=== PATIENT | female | born 1955 | race African-American/Black ===

== ENCOUNTER 2018-06-28 13:58 | Observation (INO) ==
[2018-06-28] MEDS ORDERED: predniSONE 20 MG TABLET PO ONE (14:25)
--- NOTE | 2018-06-28 14:28 | Emergency Department Note ---
Disposition Clinical Impression: Cerebrovascular accident Qualifiers: CVA mechanism: unspecified Qualified Code(s): I63.9 - Cerebral infarction, unspecified Disposition: Admitted As Inpatient Condition: Good Forms: ED Satisfaction Letter Time of Disposition: 15:39 General Adult HPI - General Chief complaint: ED Neuro Symptoms/Deficit Stated complaint: Neuro symptoms last known well Tuesday Time Seen by Provider: 06/28/18 14:17 Source: patient Mode of arrival: ambulatory Limitations: no limitations - History of Present Illness HPI Narrative: This is a 63-year-old female who comes to emergency department at the urging of her family. She states that she developed slurred speech about 40-44 hours prior to arrival. She thought she was just tired and hoped it would get better. She states her one family member thinks she may have had a stroke. Pain Scale: 0 - Related Data Home Medications Medication Instructions Recorded Confirmed Amlodipine Besylate 10 mg PO DAILY 09/30/16 09/30/16 Chlorthalidone 25 mg PO DAILY 09/30/16 09/30/16 Insulin Glargine [Lantus] 0 unit SQ HS 09/30/16 09/30/16 Lisinopril [Zestril] 10 mg PO DAILY 09/30/16 09/30/16 Metoprolol [Lopressor] 25 mg PO BID 09/30/16 09/30/16 Pravastatin Sodium 10 mg PO DAILY 09/30/16 09/30/16 metFORMIN [Glucophage] 500 mg PO 0800 09/30/16 09/30/16 Previous Rx's Medication Instructions Recorded Clindamycin [Cleocin] 150 mg PO Q6HR #7 capsule 09/30/16 OxyCODONE Immed Rel [Roxicodone 5 5 - 10 mg PO Q6HR PRN #30 tablet 09/30/16 MG] Allergies Allergy/AdvReac Type Severity Reaction Status Date / Time codeine Allergy Rash Verified 09/30/16 10:08 All systems ED: reviewed and negative except as stated. Neurological: Reports: other (Dysarthria,) Past Medical History - Past Medical History Medical history: Reports: arthritis, diabetes, hyperlipidemia, hypertension Psychiatric history: Reports: no psych history - Social History Smoking Status: Current every day smoker Smokeless Tobacco Status: No Alcohol use: Reports: none Drug use: Reports: none Physical Exam - General Limitations: no limitations General appearance: alert, in no apparent distress - Head Head exam: atraumatic - Eye Eye exam: Present: normal appearance, PERRL, EOMI. Absent: scleral icterus, conjunctival injection, miosis, mydriasis - Chest Chest inspection: Present: normal inspection, symmetric chest wall rise - Respiratory Respiratory exam: Present: normal lung sounds bilaterally - Cardiovascular Cardiovascular exam: Present: regular rate, normal rhythm, normal heart sounds - Abdominal Exam Abdominal exam: Present: soft, Non-Tender. Absent: tenderness, distention, guarding, rebound, rigidity - Extremities Exam Extremities exam: Present: normal inspection, full ROM. Absent: tenderness, pedal edema - Neurological Exam Neurological exam: Present: alert, oriented X3, other (There is slight weakness of the left forehead as well as the left lower face, and the left lower face is clearly weak compared to the right) - Expanded Neurological Exam Patient oriented to: Present: person, place, time Speech: Present: fluid speech Cranial nerves: EOM function (II, III, IV, ): Normal, facial sensation (V): Normal, facial palsy (VII): Abnormal Left, gag reflex (IX): Normal, spinal accessory function (XI): Normal, tongue deviation (XII): Normal Cerebellar function: finger to nose: Normal, heel to prado: Normal Cerebellar function: normal gait Motor strength - LUE: 5/5 Motor strength - RUE: 5/5 Motor strength - LLE: 5/5 Motor strength - RLE: 5/5 Course Course Narrative: This is a 63-year-old female who is either suffered a stroke affecting her left face or Wilkerson's palsy. Vital Signs Temperature 98.4 F 06/28/18 14:07 Pulse Rate 102 06/28/18 14:07 Respiratory Rate 16 06/28/18 14:07 Blood Pressure 201/128 06/28/18 14:07 O2 Sat by Pulse Oximetry 98 06/28/18 14:07 Temperature 98.4 F 06/28/18 14:07 Pulse Rate 102 06/28/18 14:07 Respiratory Rate 16 06/28/18 14:07 Blood Pressure 201/128 06/28/18 14:07 O2 Sat by Pulse Oximetry 98 06/28/18 14:07 Oxygen Delivery Oxygen Delivery Room Air Medical Decision Making - MDM Narrative Medical decision making narrative: This is a 63-year-old female who has sustained either a new stroke or Wilkerson's palsy. Her exam is potentially indicative of either one. Because she has already had previous strokes that apparently she did not know about, she was willing to stay for a further evaluation. I discussed her case with the on-call hospitalist, who accepted her for admission - Lab Data Lab results reviewed: Yes I reviewed the patient's lab results. Lab results narrative: CBC was unremarkable BMP was unremarkable Troponin was low Result diagrams: 06/28/18 14:30 06/28/18 14:30 Lab Results 06/28/18 06/28/18 Range/Units 14:30 14:30 WBC 10.6 (4.3-11.1) K/mcL RBC 4.78 (3.82-4.97) M/mcL Hgb 14.2 (11.5-15.4) g/dL Hct 43.3 (35.3-44.9) % MCV 90.6 (83.0-100.0) fL MCH 29.7 (28.0-33.3) pg MCHC 32.8 (31.6-35.5) g/dL RDW 12.8 (11.5-14.5) % Plt Count 242 (140-400) K/mcL MPV 10.5 (9.4-12.4) fL Sodium 138 (136-145) mEq/L Potassium 3.8 (3.5-5.1) mEq/L Chloride 103 (98-107) mEq/L Carbon Dioxide 28 (23-29) mEq/L BUN 13 (8-23) mg/dL Creatinine 0.90 (0.60-1.20) mg/dL Est GFR ( Amer) > 60 (> 60) Est GFR (Non-Af Amer) > 60 (> 60) BUN/Creatinine Ratio 14 (6-26) Glucose 74 (70-105) mg/dL Calculated Osmolality 285 (280-300) Calcium 10.6 H (8.6-10.3) mg/dL Troponin I < 0.03 (< 0.04) ng/mL - Radiology Data Radiology results reviewed: Yes I reviewed the patient's radiology results. CT brain was showing no acute findings but evidence of old strokes Critical Care Time Critical Care Time: No
[2018-06-28 14:56] LABS: Hematocrit 43.3 % (35.3-44.9); Hemoglobin 14.2 g/dL (11.5-15.4); Mean Corpuscular HGB Conc 32.8 g/dL (31.6-35.5); Mean Corpuscular Hemoglobin 29.7 pg (28.0-33.3); Mean Corpuscular Volume 90.6 fL (83.0-100.0); Mean Platelet Volume 10.5 fL (9.4-12.4); Platelet Count 242 K/mcL (140-400); Red Blood Count 4.78 M/mcL (3.82-4.97); Red Cell Distribution Width 12.8 % (11.5-14.5)
[2018-06-28 15:16] LABS: BUN/Creatinine Ratio 14 (6-26); Blood Urea Nitrogen 13 mg/dL (8-23); Calcium 10.6 mg/dL (8.6-10.3); Carbon Dioxide 28 mEq/L (23-29); Chloride 103 mEq/L (98-107); Glucose 74 mg/dL (70-105); Osmolality,Calculated 285 (280-300); Potassium 3.8 mEq/L (3.5-5.1); Sodium 138 mEq/L (136-145); Troponin I < 0.03 ng/mL (< 0.04); eGFR For Non-African Americans > 60 (> 60)
[2018-06-28] MEDS ORDERED: Aspirin 325 MG TABLET PO ONE (15:40)
[2018-06-28] MEDS ORDERED: Naloxone 0.4 MG/ML INJ IVP PRN (15:50)
[2018-06-28] MEDS ORDERED: *HR* Dextrose 50 % in Water (Syg) 50 ML SYRINGE IVP PRN (15:51)
[2018-06-28] MEDS ORDERED: D5% in Water 1,000 ML IVC PRN (15:51)
[2018-06-28] MEDS ORDERED: Dextrose Gel 15 GM/37.5 ML TUBE PO PRN ×2 (15:51)
[2018-06-28] MEDS ORDERED: *HR* Metoprolol 5 MG/5 ML VIAL IVP PRN (15:53)
--- NOTE | 2018-06-28 16:41 | Internal Med History&Physical ---
Date of Encounter: 06/28/18 Time of Encounter: 16:41 Internal Medicine - H&P: HPI Chief complaint: I might have had a stroke Admitted From: Home Plans for Post Hospital Care: Home History of present illness: Ms. Ovalle is a 63 year old female with PMH of DM, HTN, Tobacco abuse who presented to the ER stating her family member thought she might have had a stroke She reports being in her usual state of health till >48 hrs ago (Tuesday 06/26) when her family member told her she was speaking funny. She states she thought she had a slurred speech but thought it was because she was tired and that he would rarely by itself. However, she also noted a right facial droop was urged to presented to the ER by family members. She smokes half a pack of cigarettes daily, she reports compliance with her home medications. She denies prior family history. She denies illicit drug use. She denies sensation deficits, she denies loss of consciousness, she has a normal gait and has no focal weakness of any of her extremities. She denies n/v/d, She denies visual complains, she denies shortness of breath, cough , or chest pain, she has no palpitations or dizziness She has no genitourinary symptoms PMH is as stated above, she takes insulin for her DM and also takes 'a pill for cholesterol" Work up in ER showed unremarkable CBC and Chem Head CT showed evidence for old infarcts in R caudate nucleus and R basal ganglia MRI is pending EKG was not done in ER Patient will be placed on observation for CVA work up She has no advance directives and is full code Past Med Surg Social Fam HX - Past Medical History Medical history: arthritis, diabetes, hyperlipidemia, hypertension Additional medical history: tobacco dependency. left rotator cuff tear Psychiatric history: no psych history - Past Surgical History Additional surgical history: bilateral carpal tunnel. hystrectomy - Social History Smoking Status: Current every day smoker Smokeless Tobacco Status: No Alcohol use: none Drug use: none Internal Medicine - H&P: Meds Amlodipine Besylate 10 mg PO DAILY 09/30/16 [History] Chlorthalidone 25 mg PO DAILY 09/30/16 [History] Clindamycin [Cleocin] 150 mg PO Q6HR #7 capsule 09/30/16 [Rx] Insulin Glargine [Lantus] 0 unit SQ HS 09/30/16 [History] Lisinopril [Zestril] 10 mg PO DAILY 09/30/16 [History] Metoprolol [Lopressor] 25 mg PO BID 09/30/16 [History] OxyCODONE Immed Rel [Roxicodone 5 MG] 5 - 10 mg PO Q6HR PRN #30 tablet 09/30/16 [Rx] Pravastatin Sodium 10 mg PO DAILY 09/30/16 [History] metFORMIN [Glucophage] 500 mg PO 0800 09/30/16 [History] Allergy/AdvReac Type Severity Reaction Status Date / Time codeine Allergy Rash Verified 09/30/16 10:08 All Systems PM: A 10-system review of systems was performed and is negative for pertinent findings except as documented above in the HPI. - Constitutional Constitutional: as per HPI - EENT Eyes: as per HPI Ears: as per HPI Nose, mouth and throat: as per HPI - Cardiovascular Cardiovascular ROS IM: as per HPI - Respiratory Respiratory: as per HPI - Gastrointestinal Gastrointestinal: as per HPI - Genitourinary Genitourinary: as per HPI - Musculoskeletal Musculoskeletal ROS IM: as per HPI - Integumentary Integumentary IM: as per HPI - Neurological Neurological ROS: as per HPI - Hematologic/Lymphatic Hematologic/Lymphatic: as per HPI - Constitutional Vitals: Temp Pulse Resp BP Pulse Ox 98.4 F 90 16 160/99 97 06/28/18 14:07 06/28/18 16:15 06/28/18 16:15 06/28/18 16:15 06/28/18 16:15 Exam: VSS Blood pressure slightly uncontrolled Gen: Not in any form of distress, speaks full sentences HEENT: Moist oral mucosa, not pale, anicteric Chest: Equal chest move bilaterally Resp: CTAB, no added sounds Heart: S1, S2 only, RRR, no m/g/r Abdomen: Soft, not tender, no palpably enlarged organs Extremities: No edema, pulses at least 2+ bilaterally Neuro: Awake, alert, oriented, dysarthria+, flattening of the right nasolabial fold with right facial droop, intact forehead wrinkling, tongue deviation to the right, no sensation deficits, power in all limbs at least 5/5, no visual field deficits Psych; Appropriate affect Internal Med - H&P Results - Labs CBC & Chem 7: 06/28/18 14:30 06/28/18 14:30 Labs: Short CBC 06/28/18 Range/Units 14:30 WBC 10.6 (4.3-11.1) K/mcL Hgb 14.2 (11.5-15.4) g/dL Hct 43.3 (35.3-44.9) % Plt Count 242 (140-400) K/mcL BMP 06/28/18 14:30 Sodium 138 Potassium 3.8 Chloride 103 Carbon Dioxide 28 BUN 13 Creatinine 0.90 Glucose 74 Calcium 10.6 H Cardiac Enzymes 06/28/18 Range/Units 14:30 Troponin I < 0.03 (< 0.04) ng/mL - Impressions ITS Impressions Head CT 06/28/18 14:25 IMPRESSION: No acute intracranial abnormality. Evidence for old infarcts in the right caudate nucleus and right basal ganglia region D/ / Shayan Regan MD / Shayan Regan MD Interpreting Provider: Shayan Regan MD - Assessment and plan (1) Cerebrovascular accident Current Visit: Yes Status: Acute Assessment and plan: Patient with clinical findings of neurologic deficits including left facial paralysis, slurred speech , tongue deviation Brain MRI shows Right posterior frontal acute infarct with minimal global parenchymal volume loss with moderate chronic microvascular ischemic changes Received ASA in ER Continue ASA 81 mg daily Lipitor 40mg HS Obtain STAT EKG Keep on tele Obtain ECHO and Doppler USS of carotids Neurology consult Speech therapy consult Bedside swallow to be done by RN and patient can be fed if passed Blood pressure uncontrolled, allow permissive HTN for now DVT prophylaxis with lovenox Qualifiers: CVA mechanism: unspecified Qualified Code(s): I63.9 - Cerebral infarction, unspecified (2) HTN (hypertension) Current Visit: Yes Status: Chronic Assessment and plan: Resume home meds-tomorrow, after 48 hr window Metoprolol IVP prn to keep SBP <180 Continue to monitor Qualifiers: Hypertension type: essential hypertension Qualified Code(s): I10 - Essential (primary) hypertension (3) HLD (hyperlipidemia) Current Visit: Yes Status: Chronic Assessment and plan: lipitor 40mg HS Lipid panel a.m Qualifiers: Hyperlipidemia type: unspecified Qualified Code(s): E78.5 - Hyperlipidemia, unspecified (4) Diabetes mellitus Current Visit: Yes Status: Chronic Assessment and plan: Sliding scale insulin for now FS ACHS Check A1C a.m Qualifiers: Diabetes mellitus type: type 2 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
[2018-06-28] MEDS ORDERED: Perflutren Lipid Microsphere 1.3 ML in 0.9 % Sodium Chloride 8.7 ML IVP ONE (17:37)
[2018-06-28] MEDS: Insulin LISPRO 300 UNITS/3 ML VIAL SQ SCH (18:29)
[2018-06-28] MEDS ORDERED: Insulin LISPRO 300 UNITS/3 ML VIAL SQ SCH (21:00)
[2018-06-29] MEDS ORDERED: *HR* Enoxaparin 40 MG/0.4 ML SYRINGE SQ SCH (06:00)
[2018-06-29 07:02] LABS: Chol/HDL Ratio 3.3 (0-4.9)
[2018-06-29 07:03] LABS: Estimated Average Glucose 237 mg/dl; Hemoglobin A1C 9.9 %
[2018-06-29] MEDS: Insulin LISPRO 300 UNITS/3 ML VIAL SQ SCH ×2 (08:44→12:05)
--- NOTE | 2018-06-29 08:54 | Neurology - Consult Note ---
<Ajit David - Last Filed: 06/29/18 13:43> Date of Encounter: 06/29/18 Time of Encounter: 08:52 Assessment and Plan (1) Cerebrovascular accident Status: Acute - Patient presented to the emergency department with slurred speech, L facial droop, tongue deviation - Initial head CT: No acute abnormalities; old infarcts in caudate nucleus and R basal ganglia - Brain MRI: Right posterior frontal acute infarct with minimal global parenchymal volume loss with moderate chronic microvascular ischemic changes - Carotid duplex demonstrated minimal plaque in the carotid arteries bilaterally - Patient was started on both aspirin and a statin - Speech therapy was consulted Plan: - Allow permissive hypertension for 48 hour window - Continue aspirin and statin Qualifiers: CVA mechanism: unspecified Qualified Code(s): I63.9 - Cerebral infarction, unspecified (2) HTN (hypertension) Status: Chronic - Allow for permissive hypertension - Resume blood pressure medications for 48 hour window Qualifiers: Hypertension type: essential hypertension Qualified Code(s): I10 - Essential (primary) hypertension (3) HLD (hyperlipidemia) Status: Chronic - Continue statin Qualifiers: Hyperlipidemia type: unspecified Qualified Code(s): E78.5 - Hyperlipidemia, unspecified (4) Diabetes mellitus Status: Chronic - Management per primary team Qualifiers: Diabetes mellitus type: type 2 Diabetes mellitus 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 On Tuesday, 06/26, a family member had told her that she was speaking funny. Also noticed a right-sided facial droop, was urged to present to the ER by family members. She denied having any sensation deficits or loss of consciousness. No focal weaknesses or gait disturbances. Vitals on arrival were significant for an elevated heart rate at 102 bpm and elevated blood pressure of 201/128. Laboratory analysis was unremarkable. CT scan of the head did not demonstrate any acute intracranial abnormalities, but did show evidence of old infarcts in the right caudate nucleus and right basal ganglia. MRI was ordered. Patient was admitted for a stroke workup. Brain MRI demonstrated a small acute infarct in the right posterior frontal white matter, minimal global parenchymal volume loss with moderate chronic microvascular ischemic change. Patient was placed on aspirin and a statin. Carotid duplex ultrasound demonstrated minimal plaque throughout in the carotid arteries bilaterally. Patient was seen and examined at bedside this morning; she states that she is feeling somewhat better than she did on arrival. Patient states that her voice still sounds slurred, and that she still feels weakness in her face. However, she denies having any focal weaknesses, numbness, paresthesias, tingling, visual disturbances, headache, or gait difficulties. She has no further complaints at this time. Past Med Surg Social Fam HX - Past Medical History Medical history: arthritis, diabetes, hyperlipidemia, hypertension Additional medical history: tobacco dependency. left rotator cuff tear Psychiatric history: no psych history - Past Surgical History Additional surgical history: bilateral carpal tunnel. hystrectomy - Social History Smoking Status: Current every day smoker Smokeless Tobacco Status: No Alcohol use: none Drug use: none Medications and Allergies Metoprolol [Lopressor] 25 mg PO BID 09/30/16 [History] Amlodipine Besylate 10 mg PO DAILY 06/28/18 [History] Aspirin [Adult Aspirin Regimen] 81 mg PO DAILY 06/28/18 [History] GlipiZIDE [Glipizide Xl] 5 mg PO DAILY 06/28/18 [History] Insulin Glargine,Hum.rec.anlog [Lantus Solostar] 32 unit SQ DAILY 06/28/18 [History] Liraglutide [Victoza 2-Giovanny] 1.8 mg SQ DAILY 06/28/18 [History] Lisinopril [Zestril] 20 mg PO DAILY 06/28/18 [History] Metformin HCl [Metformin HCl ER] 1,000 mg PO DAILY 06/28/18 [History] Metformin HCl [Metformin HCl ER] 500 mg PO QPM 06/28/18 [History] Atorvastatin [Lipitor] 40 mg PO HS #30 tablet 06/29/18 [Rx] Allergy/AdvReac Type Severity Reaction Status Date / Time codeine Allergy Rash Verified 06/28/18 21:57 All Systems: The remainder of the systems were reviewed and are negative - Constitutional Constitutional ROS IM: as per HPI, no fatigue, no malaise, no weakness - Nose, Mouth, Throat Nose, mouth and throat: as per HPI, no headache(s), no mouth pain, no vertigo - Musculoskeletal Musculoskeletal ROS IM: as per HPI, no muscle weakness, no numbness, no tingling - Neurological Neurological ROS: as per HPI, abnormal speech, no abnormal gait, no confusion, no dizziness, no headache(s), no loss of vision, no numbness, no paresthesias, no sensory deficit, no tingling, no vertigo, no weakness, no other visual disturbances Physical Examination - Vital Signs Vital Signs: Initial Vital Signs Temp Pulse Resp BP Pulse Ox 98.4 F 102 16 201/128 98 06/28/18 14:07 06/28/18 14:07 06/28/18 14:07 06/28/18 14:07 06/28/18 14:07 - Constitutional General appearance: comfortable - Neurologic Sensorimotor examination: intact Motor examination - right side: 5/5: deltoids, biceps, triceps, wrist flexion, wrist extension, insole tacker, toe extension (EHL), plantarflexion Motor examination - left side: 5/5: deltoids, biceps, triceps, wrist flexion, wrist extension, insole tacker, toe extension (EHL), plantarflexion Detailed sensory examination: intact, light touch Reflex and gait examination: intact Reflexes: Triceps: 2+, Patella: 2+ Mental Status Examination: awake, alert, oriented to person, oriented to place, oriented to time, follows commands appropriately, answers questions appropriately, makes eye contact Cranial nerve examination: PERRL, EOMI, visual valenzuela intact Cranial Nerve Exam: facial droop: Right, tongue protrudes: Right Results - Laboratory Findings CBC and BMP: 06/28/18 14:30 06/28/18 14:30 Abnormal lab findings: Abnormal lab results POC Glucose 59 mg/dL (70-99) L 06/28/18 17:14 Hemoglobin A1c 9.9 % (-5.6) H 06/29/18 05:14 Calcium 10.6 mg/dL (8.6-10.3) H 06/28/18 14:30 LDL Cholesterol, Calc 121 mg/dL (0-99) H 06/29/18 05:14 Consult Discharge Plan - Plan Instructions: Atorvastatin (By mouth) Referrals: Brady Ames MD [Non-Partnered Physician] - 07/13/18 9:00 am (Please follow up as schedule...) Prescriptions: Atorvastatin [Lipitor] 40 mg PO HS #30 tablet <Thierry Denny I - Last Filed: 06/29/18 20:24> Date of Encounter: 06/29/18 Assessment and Plan (1) Cerebrovascular accident Status: Acute PT seen and examined agree with Dr David documentation Pt did not have any significant deficit except Mild slurred speech and minimal facial droop, no motor defecit on exam MRI is consistent with acute lacunar infarct so far wrork up is negative if she remain stable OK to Discharge with ASA and STATIN Thierry Denny MD Qualifiers: CVA mechanism: unspecified Qualified Code(s): I63.9 - Cerebral infarction, unspecified History of Present Illness HPI: Ms. Ovalle is a 63 year old female All Systems: The remainder of the systems were reviewed and are negative Physical Examination - Vital Signs Vital Signs: Initial Vital Signs Temp Pulse Resp BP Pulse Ox 98.4 F 102 16 201/128 98 06/28/18 14:07 06/28/18 14:07 06/28/18 14:07 06/28/18 14:07 06/28/18 14:07 Results - Laboratory Findings CBC and BMP: 06/28/18 14:30 06/28/18 14:30 Abnormal lab findings: Abnormal lab results POC Glucose 133 mg/dL (70-99) H 06/29/18 12:05 Hemoglobin A1c 9.9 % (-5.6) H 06/29/18 05:14 Calcium 10.6 mg/dL (8.6-10.3) H 06/28/18 14:30 LDL Cholesterol, Calc 121 mg/dL (0-99) H 06/29/18 05:14
[2018-06-29] MEDS ORDERED: amLODIPine 5 MG TABLET PO SCH (09:00)
[2018-06-29] MEDS ORDERED: Lisinopril 20 MG TABLET PO SCH (09:00)
[2018-06-29] MEDS ORDERED: Aspirin Enteric Coated 81 MG Tablet PO SCH (09:00)
--- NOTE | 2018-06-29 10:06 | Discharge Summary ---
- NOTES TO OUTPATIENT PROVIDER Notes to Outpatient Provider: Patient was admitted for an acute ischemic CVA with neurologic deficits pain left facial paralysis and dysarthria. She has no focal limb weakness and is ambulatory. She was started on aspirin and statin, echocardiogram was unremarkable, carotid ultrasound was unremarkable for plaques. She is hemodynamically stable. She was out of the window for TPA as she presented 48 hours after her symptoms. Neurology was consulted for recommendation, and he recommended continuation of aspirin and statin as well as blood pressure control and control of diabetes, as well as modification of risk factors including tobacco cessation. The patient was discharged home in clinically stable condition to follow-up with primary care physician.Follow up with neurology also within 4 weeks. Date of Encounter: 06/29/18 Time of Encounter: 10:06 - Discharge Diagnosis (1) Cerebrovascular accident Priority: Primary Status: Acute Qualifiers: CVA mechanism: unspecified Qualified Code(s): I63.9 - Cerebral infarction, unspecified (2) HTN (hypertension) Priority: Secondary Status: Chronic Qualifiers: Hypertension type: essential hypertension Qualified Code(s): I10 - [place] tial (primary) hypertension (3) HLD (hyperlipidemia) Priority: Secondary Status: Chronic Qualifiers: Hyperlipidemia type: unspecified Qualified Code(s): E78.5 - Hyperlipidemia, unspecified (4) Diabetes mellitus Priority: Secondary Status: Chronic Qualifiers: Diabetes mellitus type: type 2 Diabetes mellitus oil heaterman insulin use: with oil heaterman use Diabetes mellitus complication status: without complication Qualified Code(s): E11.9 - Type 2 diabetes mellitus without complications; Z79 .4 - senior care (current) use of insulin (5) Tobacco abuse Priority: Secondary Status: Chronic Hospital course: Ms. Ovalle is a 63 year old female with medical history of diabetes mellitus, hypertension, tobacco abuse, was admitted following complains of slurred speech and dysarthria for 48 hours. Workup in the ER revealed suspected infarct and a head CT, however brain MRI confirmed a small acute infarct in the frontoparietal region with no midline shift or mass effect, minimal global parenchymal volume loss. The patient was started on aspirin and statin, speech therapy was consulted, echocardiogram and carotid ultrasound apparently scheduled. Workup has been negative, echocardiogram is unremarkable with no LV thrombus or valvular abnormalities. The patient is ambulatory with no new symptoms. Neurology was consulted for recommendations and agrees with plan. The patient is discharged this morning with aspirin and statin, education of compliance with her medications, diabetic management, and tobacco cessation counseling. 3 minutes spent on tobacco cessation counseling. The patient is discharged home in the clinically stable condition to follow-up with PCP and neurology within the next 4 weeks . She verbalizes understanding of plan of care. Discharge discussed with: patient, nurse, retail consultant Time spent discussing smoking cessation with patient: 3 to 10 minutes (3 mins spent on tobacco cessation counselling) - Time Spent with Patient Total time spent providing and/or coordinating discharge services: Less than 30 minutes - Discharge Medications Prescriptions: Atorvastatin [Lipitor] 40 mg PO HS #30 tablet Home Medications: Metoprolol [Lopressor] 25 mg PO BID 09/30/16 [History] Amlodipine Besylate 10 mg PO DAILY 06/28/18 [History] Aspirin [Adult Aspirin Regimen] 81 mg PO DAILY 06/28/18 [History] GlipiZIDE [Glipizide Xl] 5 mg PO DAILY 06/28/18 [History] Insulin Glargine,Hum.rec.anlog [Lantus Solostar] 32 unit SQ DAILY 06/28/18 [History] Liraglutide [Victoza 2-Giovanny] 1.8 mg SQ DAILY 06/28/18 [History] Lisinopril [Zestril] 20 mg PO DAILY 06/28/18 [History] Metformin HCl [Metformin HCl ER] 1,000 mg PO DAILY 06/28/18 [History] Metformin HCl [Metformin HCl ER] 500 mg PO QPM 06/28/18 [History] Atorvastatin [Lipitor] 40 mg PO HS #30 tablet 06/29/18 [Rx] Allergies/Adverse Reactions: Allergy/AdvReac Type Severity Reaction Status Date / Time codeine Allergy Rash Verified 06/28/18 21:57 Date of admission: 06/28/18 16:11 Primary care physician: PCP NONE Consults: 06/28/18 16:07 Consult to Speech Therapy [CONS] Routine Comment: Evaluate, develop and implement POC Reason for Consult: Slurred speech Call Completed: No 06/28/18 17:13 Consult to Neurology [CONS] Routine Consulting Provider: Neurology [facility] Reason for Consult: CVA Call Completed: No 06/29/18 09:12 Consult to Occupational Therapy [CONS] Routine Comment: Evaluate, develop and implement POC Reason for Consult: eval per CVA protocol Does patient have active BEDREST order?: No Is patient medically & hemodynamically stable?: Yes Consult to Physical Therapy [CONS] Routine Comment: Evaluate, develop and implement POC Reason for Consult: eval per CVA protocol Does patient have active BEDREST order?: No Is patient medically & hemodynamically stable?: Yes Discharging clinician: Ronen Koch Anticipated date of discharge: 06/29/18 - Constitutional Vitals: Temp Pulse Resp BP Pulse Ox 98.5 F 74 16 161/87 100 06/29/18 07:46 06/29/18 07:46 06/29/18 07:46 06/29/18 07:46 06/29/18 07:46 Exam: VSS Blood pressure slightly uncontrolled Gen: Not in any form of distress, speaks full sentences HEENT: Moist oral mucosa, not pale, anicteric Chest: Equal chest move bilaterally Resp: CTAB, no added sounds Heart: S1, S2 only, RRR, no m/g/r Abdomen: Soft, not tender, no palpably enlarged organs Extremities: No edema, pulses at least 2+ bilaterally Neuro: Awake, alert, oriented, dysarthria+, flattening of the right nasolabial fold with right facial droop, intact forehead wrinkling, tongue deviation to the right, no sensation deficits, power in all limbs at least 5/5, no visual field deficits Psych; Appropriate affect - Patient Status Disposition: Home, Self-Care Condition: Fair Functional capacity at discharge: independent ambulation Overall status at discharge: patient is progressing back to baseline - Discharge Instructions Instructions: Atorvastatin (By mouth) Follow Up With: Brady Ames MD [Non-Partnered Physician] - 07/13/18 9:00 am (Please follow up as schedule...) - Diet and Activity Activity: resume usual activities as tolerated Diet: diabetic diet, low fat, low cholesterol, low salt diet
[2018-06-29 11:08] VITALS: BP 162/88
--- NOTE | 2018-06-29 17:40 | Electrocardiograph Report ---
[address] [place], [place] [address] Test Date: 2018-06-28 Pat Name: Tram Ovalle Department: 109 Room: 2A42 Gender: F [employer]ater Installer: [employer] : [id number] Requested By: Ronen Koch Order Number: [id number] Reading MD: Isela Jha Measurements Intervals [place] Rate: 94 P: 43 NV: 150 QRS: 50 QRSD: 81 T: 55 QT: 381 QTc: 433 Interpretive Statements SINUS RHYTHM VOLTAGE CRITERIA FOR LVH Electronically Signed On 06-29-2018 17:38:26 EST by Isela Jha
--- NOTE | 2018-06-30 13:39 | Electrocardiograph Report ---
[place] [id number] Test Date: 2018-06-28 Pat Name: Tram Ovalle Department: 109 Room: 2A42 Gender: F Medicare Contact Specialist: : [id number] Requested By: Ronen Koch Order Number: [id number] Reading MD: Matthew Coronado Measurements Intervals [place] Rate: 84 P: 39 CT: 162 QRS: 33 QRSD: 88 T: 52 QT: 378 QTc: 419 Interpretive Statements SINUS RHYTHM MODERATE VOLTAGE CRITERIA FOR LVH, CONSIDER NORMAL VARIANT NONSPECIFIC T-WAVE ABNORMALITY Electronically Signed On 06-30-2018 13:37:53 EST by Matthew Coronado
== END 2018-06-29 13:10 | disposition home or self-care (01) ==
LOC: SUATTDRO → EMEROOARM 13:58 → 2ANU 13:58
PROVIDERS: ADMIT Internal Medicine; ATTEND Internal Medicine

== ENCOUNTER 2021-02-04 17:39 | Inpatient (IN) ==
[2021-02-04] MEDS ORDERED: *HR* FentaNYL (PF) 100 MCG/2 ML VIAL IVP ONE (18:04)
[2021-02-04] MEDS ORDERED: Ondansetron 4 MG/2 ML VIAL IVP ONE (18:04)
[2021-02-04 18:27] LABS: Hematocrit 37.6 % (35.3-44.9); Hemoglobin 12.6 g/dL (11.5-15.4); Immature Platelets 4.9 % (1.1-6.1); Mean Corpuscular HGB Conc 33.5 g/dL (31.6-35.5); Mean Corpuscular Hemoglobin 30.4 pg (28.0-33.3); Mean Corpuscular Volume 90.6 fL (83.0-100.0); Red Blood Count 4.15 M/mcL (3.82-4.97); Red Cell Distribution Width 12.6 % (11.5-14.5); White Blood Count 8.1 K/mcL (4.3-11.1)
[2021-02-04 19:27] LABS: BUN/Creatinine Ratio 21 (6-26); Blood Urea Nitrogen 21 mg/dL (8-23); Carbon Dioxide 26 mEq/L (23-29); Chloride 100 mEq/L (98-107); Glucose 403 mg/dL (70-105); Osmolality,Calculated 298 (280-300); Potassium 4.3 mEq/L (3.5-5.1); Sodium 134 mEq/L (136-145); eGFR For African Americans > 60 (> 60); eGFR For Non-African Americans 57 (> 60)
[2021-02-04] MEDS ORDERED: *HR* HYDROmorphone (PF) 1 MG/ML SYRINGE IVP ONE (20:10)
[2021-02-04] MEDS ORDERED: Insulin Human Regular 10 UNIT in 0.9 % Sodium Chloride 10 ML IV ONE (20:18)
[2021-02-04 20:55] LABS: Bilirubin,Urine Negative (Negative); Blood,Urine Moderate (Negative); Clarity,Urine Turbid (Clear); Color,Urine Yellow (Yellow); Glucose,Urine (UA) >=1000 mg/dL (Normal); Ketones,Urine Negative (Negative); Leukocyte Esterase,Urine Large (Negative); Mucus,Urine Few per lpf (None-Few); Nitrite,Urine Negative (Negative); Protein,Urine Trace mg/dL (Neg-Trace); RBC,Urine 50-100 per hpf (0-3); Specific Gravity,Urine > 1.030 (1.010-1.025); Squamous Epithelial Cell,Urine Moderate per hpf (None-Few); Trichomonas,Urine Present per hpf (None Seen); Urobilinogen,Urine Normal (Normal); WBC,Urine TNTC per hpf (0-3)
[2021-02-04] MEDS ORDERED: metroNIDAZOLE 500 MG TABLET PO ONE (21:00)
[2021-02-04] MEDS ORDERED: cefTRIAXone 1,000 MG in Water for inj. (sterile) 10 ML IVP ONE (21:00)
[2021-02-04] MEDS ORDERED: Perflutren Lipid Microsphere 1.3 ML in 0.9 % Sodium Chloride 8.7 ML IVP PRN (21:38)
[2021-02-04] MEDS ORDERED: Gadolinium Contrast Agent (WT Based) IV PRN (21:43)
[2021-02-04] MEDS ORDERED: D5% in Water 1,000 ML IVC PRN (21:47)
[2021-02-04] MEDS ORDERED: Dextrose Gel 15 GM/37.5 ML TUBE PO PRN ×2 (21:47)
[2021-02-04] MEDS ORDERED: *HR* Dextrose 50 % in Water (Vial) 50 ML VIAL IVP PRN (21:47)
[2021-02-04] MEDS ORDERED: Ketorolac 30 MG/ML VIAL IVP PRN (21:49)
[2021-02-04] MEDS ORDERED: *HR* Promethazine 25 MG/ML VIAL IM PRN (21:49)
[2021-02-04] MEDS ORDERED: Naloxone 0.4 MG/ML INJ IVP PRN (21:49)
[2021-02-04 22:53] LABS: Amphetamine Screen,Urine Negative ng/mL (Cutoff=1000); Barbiturate Screen,Urine Negative ng/mL (Cutoff=200); Benzodiazepines Screen,Urine Negative ng/mL (Cutoff=200); Cannabinoid Screen,Urine Negative ng/mL (Cutoff = 50); Cocaine Screen,Urine Negative ng/mL (Cutoff= 300); Opiate Screen,Urine Negative ng/mL (Cutoff=300); Phencyclidine Screen,Urine Negative ng/mL (Cutoff=25)
[2021-02-04] MEDS: Insulin LISPRO 300 UNITS/3 ML VIAL SUBQ SCH (23:55)
[2021-02-04] MEDS: Aspirin Enteric Coated 81 MG Tablet PO SCH (23:59)
[2021-02-05] MEDS: Insulin DETEMIR 100 UNIT/ML X5UNITS SUBQ SCH ×2 (00:32→21:31)
[2021-02-05] MEDS: Insulin LISPRO 300 UNITS/3 ML VIAL SUBQ SCH ×3 (05:57→16:56)
[2021-02-05 06:44] LABS: Basophils % 0.1 %; Hemoglobin 11.6 g/dL (11.5-15.4); Immature Granulocytes % 0.4 % (0-4); Lymphocytes # 1.8 K/mcL (0.6-4.6); Mean Corpuscular HGB Conc 34.1 g/dL (31.6-35.5); Mean Corpuscular Hemoglobin 31.1 pg (28.0-33.3); Mean Corpuscular Volume 91.2 fL (83.0-100.0); Mean Platelet Volume 11.3 fL (9.4-12.4); Monocytes # 0.9 K/mcL (0.0-1.3); Monocytes % 6.4 %; Neutrophils # 10.8 K/mcL (1.6-8.9); Platelet Count 189 K/mcL (140-400); Red Blood Count 3.73 M/mcL (3.82-4.97); Red Cell Distribution Width 12.5 % (11.5-14.5); Segmented Neutrophils % 80.1 %; White Blood Count 13.5 K/mcL (4.3-11.1)
[2021-02-05 06:49] LABS: Prothrombin Time 11.1 Seconds (9.4-12.1)
[2021-02-05] MEDS ORDERED: GADOBUTROL 30 MMOL/30 ML VIAL IVP ONE (06:53)
[2021-02-05 07:18] LABS: Alanine Aminotransferase 9 Units/L (7-52); Albumin/Globulin Ratio 1.5 (1.1-2.2); Alkaline Phosphatase 110 Units/L (34-104); Aspartate Amino Transferase 13 Units/L (13-39); BUN/Creatinine Ratio 23 (6-26); Bilirubin,Total 0.6 mg/dL (0.3-1.0); Blood Urea Nitrogen 29 mg/dL (8-23); Calcium 9.9 mg/dL (8.6-10.3); Carbon Dioxide 23 mEq/L (23-29); Chloride 100 mEq/L (98-107); Globulin 2.7 g/dL (2.4-3.5); Glucose 244 mg/dL (70-105); Osmolality,Calculated 294 (280-300); Potassium 4.4 mEq/L (3.5-5.1); Sodium 135 mEq/L (136-145); Total Protein 6.7 g/dL (6.4-8.9); eGFR For African Americans 51 (> 60); eGFR For Non-African Americans 42 (> 60)
[2021-02-05 07:19] LABS: Chol/HDL Ratio 3.3 (0-4.9); Cholesterol 157 mg/dL (< 200); HDL Cholesterol 48 mg/dL (40-59); LDL Cholesterol,Calculated 101 mg/dL (< 100); Triglycerides 40 mg/dL (< 150); Troponin I < 0.03 ng/mL (< 0.04)
[2021-02-05] MEDS: metroNIDAZOLE 500 MG TABLET PO SCH ×2 (08:10→21:31)
[2021-02-05] MEDS: cefTRIAXone 1,000 MG in Water for inj. (sterile) 10 ML IVP SCH (08:11)
[2021-02-05] MEDS: Aspirin Enteric Coated 81 MG Tablet PO SCH (08:11)
[2021-02-05 08:19] LABS: Estimated Average Glucose 217 mg/dl; Hemoglobin A1C 9.2 %
[2021-02-05 10:39] LABS: Thyroid Stimulating Hormone 0.358 mcIU/mL (0.340-5.600)
[2021-02-05] MEDS: Ondansetron 4 MG/2 ML VIAL IVP PRN (21:15)
[2021-02-06] MEDS: Insulin LISPRO 300 UNITS/3 ML VIAL SUBQ SCH ×4 (00:41→18:46)
[2021-02-06] MEDS: *HR* Heparin 5,000 UNIT/ML VIAL SQ SCH ×2 (05:20→16:37)
[2021-02-06 06:01] LABS: Basophils % 0.1 %; Eosinophils % 0.3 %; Hematocrit 33.7 % (35.3-44.9); Hemoglobin 11.3 g/dL (11.5-15.4); Immature Granulocytes % 0.3 % (0-4); Lymphocytes # 1.5 K/mcL (0.6-4.6); Lymphocytes % 14.5 %; Mean Corpuscular HGB Conc 33.5 g/dL (31.6-35.5); Mean Corpuscular Hemoglobin 30.4 pg (28.0-33.3); Mean Corpuscular Volume 90.6 fL (83.0-100.0); Mean Platelet Volume 11.1 fL (9.4-12.4); Monocytes # 0.7 K/mcL (0.0-1.3); Monocytes % 6.8 %; Neutrophils # 8.3 K/mcL (1.6-8.9); Platelet Count 173 K/mcL (140-400); Red Blood Count 3.72 M/mcL (3.82-4.97); Red Cell Distribution Width 12.6 % (11.5-14.5); White Blood Count 10.6 K/mcL (4.3-11.1)
[2021-02-06 06:30] LABS: % Iron Saturation 16 % (15-50); BUN/Creatinine Ratio 30 (6-26); Blood Urea Nitrogen 26 mg/dL (8-23); Calcium 9.7 mg/dL (8.6-10.3); Carbon Dioxide 27 mEq/L (23-29); Chloride 102 mEq/L (98-107); Glucose 154 mg/dL (70-105); Iron 50 mcg/dL (50-170); Osmolality,Calculated 294 (280-300); Phosphorous 3.3 mg/dL (2.7-4.5); Potassium 3.9 mEq/L (3.5-5.1); Sodium 138 mEq/L (136-145); Transferrin 225 mg/dL (203-362); eGFR For African Americans > 60 (> 60); eGFR For Non-African Americans > 60 (> 60)
[2021-02-06 06:40] LABS: Ferritin 81 ng/mL (10-120)
[2021-02-06 06:44] LABS: Folate 9.3 ng/mL (3.0-16.0)
[2021-02-06] MEDS ORDERED: Iron Sucrose Complex 400 MG in 0.9 % Sodium Chloride 250 ML IVPB ONE (07:34)
[2021-02-06] MEDS: Aspirin Enteric Coated 81 MG Tablet PO SCH (07:58)
[2021-02-06] MEDS: metroNIDAZOLE 500 MG TABLET PO SCH (07:58)
[2021-02-06] MEDS: cefTRIAXone 1,000 MG in Water for inj. (sterile) 10 ML IVP SCH (07:58)
[2021-02-06] MEDS ORDERED: Nicotine 21 MG PATCH.TD24 TD SCH (09:00)
[2021-02-06] MEDS ORDERED: Multivit/Ca/Min/Fe/FA 1 TAB TABLET PO SCH (09:00)
[2021-02-06] MEDS ORDERED: Ondansetron 4 MG/2 ML VIAL IVP PRN ×3 (11:17→22:09)
[2021-02-06] MEDS ORDERED: *HR* HYDROmorphone PF 0.5 MG/0.5 ML SYRINGE IVP PRN (11:17)
[2021-02-06] MEDS ORDERED: *HR* FentaNYL (PF) 100 MCG/2 ML VIAL IVP PRN (11:17)
[2021-02-06] MEDS ORDERED: Saliva Stimulant 44.3ml BOTTLE PO PRN ×2 (15:42→22:09)
[2021-02-06] MEDS: Ondansetron 4 MG/2 ML VIAL IVP PRN (16:33)
[2021-02-06] MEDS ORDERED: Lidocaine HCL 4 ML Topical Solution (Laryng-O-Jet Kit Sterile Pak) TP ONE (17:52)
[2021-02-06] MEDS ORDERED: *HR* Rocuronium Bromide 50 MG/5 ML VIAL ONE (17:56)
[2021-02-06] MEDS ORDERED: Lidocaine -MPF 2% 2 ML VIAL ONE (17:56)
[2021-02-06] MEDS ORDERED: Ondansetron 4 MG/2 ML VIAL ONE (17:56)
[2021-02-06] MEDS ORDERED: *HR* Succinylcholine 200 MG/10 ML VIAL IVP ONE (17:56)
[2021-02-06] MEDS ORDERED: *HR* FentaNYL (PF) 100 MCG/2 ML VIAL ONE ×3 (17:57→20:10)
[2021-02-06] MEDS ORDERED: Ringers Solution, Lactated 1,000 ML ONE (18:04)
[2021-02-06] MEDS ORDERED: Ringers Solution, Lactated 500 ML IVC SCH (19:00)
[2021-02-06] MEDS ORDERED: Famotidine 20 MG/2 ML VIAL ONE (19:53)
[2021-02-06] MEDS ORDERED: Acetaminophen IV 1,000 MG/100 ML BAG IVPB ONE (19:53)
[2021-02-06] MEDS ORDERED: Morphine Sulfate 2 MG/ML SYRINGE IVP PRN (20:58)
[2021-02-06] MEDS ORDERED: Lactobacillus 1 EACH CAP.SPRINK PO SCH (21:00)
[2021-02-06] MEDS ORDERED: *HR* Labetalol 20 MG/4 ML SYRINGE IVP ONE (21:07)
[2021-02-06] MEDS ORDERED: *HR* Promethazine 25 MG/ML VIAL IM PRN (22:09)
[2021-02-06] MEDS ORDERED: Ringers Solution, Lactated 500 ML IVC ONE (22:09)
[2021-02-06] MEDS ORDERED: *HR* Dextrose 50 % in Water (Vial) 50 ML VIAL IVP PRN (22:09)
[2021-02-06] MEDS ORDERED: D5% in Water 1,000 ML IVC PRN (22:09)
[2021-02-06] MEDS ORDERED: Dextrose Gel 15 GM/37.5 ML TUBE PO PRN ×2 (22:09)
[2021-02-06] MEDS ORDERED: Naloxone 0.4 MG/ML INJ IVP PRN (22:09)
[2021-02-06] MEDS ORDERED: Perflutren Lipid Microsphere 1.3 ML in 0.9 % Sodium Chloride 8.7 ML IVP PRN (22:09)
[2021-02-06] MEDS ORDERED: Gadolinium Contrast Agent (WT Based) IV PRN (22:09)
[2021-02-07] MEDS ORDERED: CeFAZolin 2 GM/120 ML BAG IVPB SCH
[2021-02-07] MEDS: Insulin LISPRO 300 UNITS/3 ML VIAL SUBQ SCH ×4 (00:33→17:23)
[2021-02-07 03:05] LABS: Basophils % 0.1 %; Hematocrit 30.6 % (35.3-44.9); Immature Granulocytes % 0.5 % (0-4); Lymphocytes # 0.7 K/mcL (0.6-4.6); Lymphocytes % 5.4 %; Mean Corpuscular HGB Conc 32.7 g/dL (31.6-35.5); Mean Corpuscular Hemoglobin 30.3 pg (28.0-33.3); Mean Corpuscular Volume 92.7 fL (83.0-100.0); Monocytes # 0.5 K/mcL (0.0-1.3); Monocytes % 3.9 %; Neutrophils # 11.2 K/mcL (1.6-8.9); Platelet Count 156 K/mcL (140-400); Red Cell Distribution Width 12.7 % (11.5-14.5); Segmented Neutrophils % 90.1 %; White Blood Count 12.5 K/mcL (4.3-11.1)
[2021-02-07 03:27] LABS: BUN/Creatinine Ratio 31 (6-26); Blood Urea Nitrogen 32 mg/dL (8-23); Calcium 8.7 mg/dL (8.6-10.3); Carbon Dioxide 23 mEq/L (23-29); Chloride 103 mEq/L (98-107); Glucose 301 mg/dL (70-105); Magnesium 1.7 mg/dL (1.6-2.6); Osmolality,Calculated 298 (280-300); Phosphorous 4.5 mg/dL (2.7-4.5); Potassium 4.3 mEq/L (3.5-5.1); Sodium 135 mEq/L (136-145); eGFR For African Americans > 60 (> 60); eGFR For Non-African Americans 53 (> 60)
[2021-02-07] MEDS: CeFAZolin 2 GM/120 ML BAG IVPB SCH ×2 (04:07→12:21)
[2021-02-07] MEDS: *HR* Heparin 5,000 UNIT/ML VIAL SQ SCH ×2 (06:44→17:25)
[2021-02-07] MEDS ORDERED: Water for inj. (sterile) 10 ML ONE (07:51)
[2021-02-07] MEDS: Lactobacillus 1 EACH CAP.SPRINK PO SCH ×2 (07:52→21:31)
[2021-02-07] MEDS: Multivit/Ca/Min/Fe/FA 1 TAB TABLET PO SCH (07:52)
[2021-02-07] MEDS: metroNIDAZOLE 500 MG TABLET PO SCH ×2 (07:52→21:32)
[2021-02-07] MEDS: Nicotine 21 MG PATCH.TD24 TD SCH (07:52)
[2021-02-07] MEDS: Aspirin Enteric Coated 81 MG Tablet PO SCH (07:52)
[2021-02-07] MEDS: lisinopriL 10 MG TABLET PO SCH (07:52)
[2021-02-07] MEDS ORDERED: lisinopriL 10 MG TABLET PO SCH (09:00)
[2021-02-07] MEDS ORDERED: cefTRIAXone 1,000 MG in Water for inj. (sterile) 10 ML IVP SCH (09:00)
[2021-02-07] MEDS: Insulin DETEMIR 100 UNIT/ML X5UNITS SUBQ SCH (21:32)
[2021-02-08] MEDS: Insulin LISPRO 300 UNITS/3 ML VIAL SUBQ SCH ×5 (00:32→23:39)
[2021-02-08 01:45] LABS: Basophils % 0.1 %; Eosinophils % 0.3 %; Hematocrit 26.8 % (35.3-44.9); Immature Granulocytes % 0.3 % (0-4); Lymphocytes # 2.7 K/mcL (0.6-4.6); Lymphocytes % 22.5 %; Mean Corpuscular HGB Conc 33.6 g/dL (31.6-35.5); Mean Corpuscular Hemoglobin 30.8 pg (28.0-33.3); Mean Corpuscular Volume 91.8 fL (83.0-100.0); Monocytes # 0.8 K/mcL (0.0-1.3); Monocytes % 6.4 %; Neutrophils # 8.4 K/mcL (1.6-8.9); Platelet Count 155 K/mcL (140-400); Red Blood Count 2.92 M/mcL (3.82-4.97); Red Cell Distribution Width 12.7 % (11.5-14.5); Segmented Neutrophils % 70.4 %; White Blood Count 11.9 K/mcL (4.3-11.1)
[2021-02-08 02:05] LABS: BUN/Creatinine Ratio 27 (6-26); Blood Urea Nitrogen 21 mg/dL (8-23); Calcium 8.9 mg/dL (8.6-10.3); Carbon Dioxide 28 mEq/L (23-29); Chloride 102 mEq/L (98-107); Glucose 199 mg/dL (70-105); Magnesium 1.8 mg/dL (1.6-2.6); Osmolality,Calculated 289 (280-300); Phosphorous 2.2 mg/dL (2.7-4.5); Potassium 4.4 mEq/L (3.5-5.1); Sodium 135 mEq/L (136-145); eGFR For African Americans > 60 (> 60); eGFR For Non-African Americans > 60 (> 60)
[2021-02-08] MEDS: lisinopriL 10 MG TABLET PO SCH (08:21)
[2021-02-08] MEDS: Multivit/Ca/Min/Fe/FA 1 TAB TABLET PO SCH (08:21)
[2021-02-08] MEDS: Cefdinir 300 MG CAPSULE PO SCH ×2 (08:21→21:18)
[2021-02-08] MEDS: Lactobacillus 1 EACH CAP.SPRINK PO SCH ×2 (08:21→21:18)
[2021-02-08] MEDS: Nicotine 21 MG PATCH.TD24 TD SCH (08:21)
[2021-02-08] MEDS: metroNIDAZOLE 500 MG TABLET PO SCH ×2 (08:21→21:18)
[2021-02-08] MEDS: Aspirin Enteric Coated 81 MG Tablet PO SCH (08:21)
[2021-02-08 12:05] LABS: Hematocrit 27.7 % (35.3-44.9); Hemoglobin 9.2 g/dL (11.5-15.4)
[2021-02-08] MEDS: *HR* Rivaroxaban 10 MG TABLET PO SCH (17:12)
[2021-02-08] MEDS: Insulin DETEMIR 100 UNIT/ML X5UNITS SUBQ SCH (21:19)
[2021-02-09 01:03] LABS: Hematocrit 27.3 % (35.3-44.9); Mean Corpuscular Hemoglobin 30.2 pg (28.0-33.3); Mean Corpuscular Volume 91.6 fL (83.0-100.0); Mean Platelet Volume 10.6 fL (9.4-12.4); Platelet Count 159 K/mcL (140-400); Red Blood Count 2.98 M/mcL (3.82-4.97); Red Cell Distribution Width 12.7 % (11.5-14.5); White Blood Count 10.2 K/mcL (4.3-11.1)
[2021-02-09 01:23] LABS: BUN/Creatinine Ratio 22 (6-26); Blood Urea Nitrogen 15 mg/dL (8-23); Carbon Dioxide 28 mEq/L (23-29); Chloride 101 mEq/L (98-107); Glucose 169 mg/dL (70-105); Osmolality,Calculated 285 (280-300); Phosphorous 2.4 mg/dL (2.7-4.5); Potassium 4.3 mEq/L (3.5-5.1); Sodium 135 mEq/L (136-145); eGFR For African Americans > 60 (> 60); eGFR For Non-African Americans > 60 (> 60)
[2021-02-09] MEDS: Insulin LISPRO 300 UNITS/3 ML VIAL SUBQ SCH ×3 (05:49→18:23)
[2021-02-09] MEDS: Aspirin Enteric Coated 81 MG Tablet PO SCH (08:56)
[2021-02-09] MEDS: Nicotine 21 MG PATCH.TD24 TD SCH (08:57)
[2021-02-09] MEDS: lisinopriL 10 MG TABLET PO SCH (08:57)
[2021-02-09] MEDS: Lactobacillus 1 EACH CAP.SPRINK PO SCH ×2 (08:57→21:02)
[2021-02-09] MEDS: Cefdinir 300 MG CAPSULE PO SCH (08:57)
[2021-02-09] MEDS: Multivit/Ca/Min/Fe/FA 1 TAB TABLET PO SCH (08:57)
[2021-02-09] MEDS: metroNIDAZOLE 500 MG TABLET PO SCH ×2 (08:57→21:02)
[2021-02-09] MEDS: NIFEdipine XL (24 HR) 30 MG TAB.ER.24 PO SCH (18:19)
[2021-02-09] MEDS: *HR* Rivaroxaban 10 MG TABLET PO SCH (18:20)
[2021-02-09] MEDS: Insulin DETEMIR 100 UNIT/ML X5UNITS SUBQ SCH (21:03)
[2021-02-10] MEDS: Insulin LISPRO 300 UNITS/3 ML VIAL SUBQ SCH ×3 (01:12→12:26)
[2021-02-10 05:13] LABS: Hematocrit 26.7 % (35.3-44.9); Mean Corpuscular HGB Conc 33.7 g/dL (31.6-35.5); Mean Corpuscular Hemoglobin 30.8 pg (28.0-33.3); Mean Corpuscular Volume 91.4 fL (83.0-100.0); Mean Platelet Volume 10.7 fL (9.4-12.4); Platelet Count 195 K/mcL (140-400); Red Blood Count 2.92 M/mcL (3.82-4.97); Red Cell Distribution Width 12.5 % (11.5-14.5)
[2021-02-10 05:34] LABS: BUN/Creatinine Ratio 22 (6-26); Blood Urea Nitrogen 16 mg/dL (8-23); Calcium 8.9 mg/dL (8.6-10.3); Carbon Dioxide 27 mEq/L (23-29); Chloride 100 mEq/L (98-107); Glucose 218 mg/dL (70-105); Magnesium 1.7 mg/dL (1.6-2.6); Osmolality,Calculated 284 (280-300); Phosphorous 3.2 mg/dL (2.7-4.5); Potassium 4.5 mEq/L (3.5-5.1); Sodium 133 mEq/L (136-145); eGFR For African Americans > 60 (> 60); eGFR For Non-African Americans > 60 (> 60)
[2021-02-10] MEDS ORDERED: lisinopriL 20 MG TABLET PO SCH (09:00)
[2021-02-10] MEDS: NIFEdipine XL (24 HR) 30 MG TAB.ER.24 PO SCH (09:11)
[2021-02-10] MEDS: Lactobacillus 1 EACH CAP.SPRINK PO SCH (09:11)
[2021-02-10] MEDS: Aspirin Enteric Coated 81 MG Tablet PO SCH (09:12)
[2021-02-10] MEDS: metroNIDAZOLE 500 MG TABLET PO SCH (09:12)
[2021-02-10] MEDS: Multivit/Ca/Min/Fe/FA 1 TAB TABLET PO SCH (09:12)
[2021-02-10] MEDS: Nicotine 21 MG PATCH.TD24 TD SCH (09:12)
[2021-02-10] MEDS: Insulin DETEMIR 100 UNIT/ML X5UNITS SUBQ SCH (09:18)
[2021-02-10 11:01] VITALS: BP 121/70; PULSE 73; TEMP 98.7; O2SAT 96
== END 2021-02-10 16:53 | DRG 480 ==
LOC: EMEROOARM 17:39 → 3NENU 17:39 → OBSVTOIN 22:01 → SUATTDRO 22:01 → 3NENU 22:39
PROVIDERS: ADMIT Family Medicine; ATTEND Internal Medicine